=== PATIENT | male | born 1960 | race Caucasian/White ===

== ENCOUNTER → 2017-02-16 | Outpatient (CLI) | payer OTHER ==
--- NOTE | 2017-02-16 14:56 | XR ---
Left hip HISTORY: Trauma and pain 2 views of the left hip correlated to left femur same date Mild remodeling present at the hip joint, there is joint space loss. Alignment and bone mineralizatio n are maintained. No fracture or dislocation. IMPRESSION: Mild osteoarthritic change is suspected, correlate to exclude femoral acetabular impingem ent.
--- NOTE | 2017-02-16 14:58 | XR ---
EXAMINATION TYPE: XR femur LT DATE OF EXAM: 02/16/2017 CLINICAL HISTORY: Left hip pain after fall TECHNIQUE: Two views of the left femur are obtained. COMPARISON: None FINDINGS: There is no acute fracture or dislocation seen in the left femur. The left hip and knee j oints appear within normal limits. The overlying soft tissue appears unremarkable. Mild degenerative changes are seen of the femoral acetabular joints demonstrated as sourcil marginal endplate and ceph alad joint space narrowing. Minimal medial compartment joint space narrowing is also seen of the femo ral tibial joint with tibial sclerosis. Fabella is incidentally noted. Slight irregularity of the fib rehana may relate to prior injury as it is only seen on the lateral view. IMPRESSION: 1. There is no acute fracture or dislocation in the left femur. 2. Mild arthropathy of the femoral acetabular joint and femorotibial joints.
== END ==
LOC: RADXRMAIN 14:31
PROVIDERS: ATTEND Emergency Medicine
DX: S73.102A Unspecified sprain of left hip, initial encounter (principal)
CPT/HCPCS: 73502

== ENCOUNTER → 2019-05-16 | Outpatient (CLI) | payer OTHER ==
--- NOTE | 2019-05-16 11:51 | CT ---
EXAMINATION TYPE: CT cervical spine wo con DATE OF EXAM: 05/16/2019 COMPARISON: HISTORY: Fall, neck pain CT DLP: 439.4 mGycm CONTRAST: No contrast CT of the cervical spine is performed in the axial plane at 2 mm thick sections. Reconstructed image s in the coronal, and sagittal plane are reviewed on the computer. No acute fractures are evident. Vertebral body alignment is normal. Disc heights are preserved. There appears to be a moderately large disc herniation at C5-6 and the r ight paracentral region. This is broad-based but without spinal canal stenosis. Some cord contact may be present. Consider follow-up MRI for closer evaluation. This is not clearly evident on the compari son of 2015. Vertebral body heights are preserved. No spinal canal stenosis is evident Uncovertebral joint hypertrophy is present C4-C5 on the left with moderate foraminal narrowing. IMPRESSIONS: 1. No obvious acute osseous changes. 2. Chronic moderate narrowing left C4-5 foramen due to uncovertebral joint hypertrophy. 3. Disc herniation C5-C6 right paracentral with at least moderate thecal sac compression. Consider fo llow-up MRI for additional evaluation. Some cord contact should be considered.
== END | disposition home or self-care (01) ==
LOC: RADCTMAIN 11:10
PROVIDERS: ATTEND Emergency Medicine
DX: M48.02 Spinal stenosis, cervical region (principal); M50.222 Other cervical disc displacement at C5-C6 level
CPT/HCPCS: 72125

== ENCOUNTER → 2019-05-25 | Outpatient (CLI) | payer OTHER ==
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
== END | disposition home or self-care (01) ==
LOC: RADMRIMAIN 11:38
PROVIDERS: ATTEND Emergency Medicine
DX: M48.02 Spinal stenosis, cervical region (principal); M50.222 Other cervical disc displacement at C5-C6 level; M47.812 Spondylosis without myelopathy or radiculopathy, cervical region; M46.92 Unspecified inflammatory spondylopathy, cervical region; S13.4XXA Sprain of ligaments of cervical spine, initial encounter
CPT/HCPCS: 72141

== ENCOUNTER 2022-09-10 16:23 | Emergency (ER) | payer OTHER, BC ==
[2022-09-10 16:42] VITALS: RESP 18
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
[2022-09-10 18:26] LABS: Basophils % (A) 1 %; Eosinophils # (A) 0.1 k/uL (0-0.7); Eosinophils % (A) 1 %; HCT 50.5 % (39.0-53.0); Lymphocytes # (A) 1.5 k/uL (1.0-4.8); Lymphocytes % (A) 20 %; MCH 30.1 pg (25.0-35.0); MCHC 33.6 g/dL (31.0-37.0); MCV 89.6 fL (80.0-100.0); Mean Platelet Volume 7.3; Monocytes # (A) 0.4 k/uL (0-1.0); Monocytes % (A) 6 %; Neutrophils # (A) 5.3 k/uL (1.3-7.7); Neutrophils % (A) 70 %; Platelet Count 274 k/uL (150-450); RBC 5.64 m/uL (4.30-5.90); RDW 12.8 % (11.5-15.5); WBC 7.5 k/uL (3.8-10.6)
[2022-09-10 18:37] LABS: ALT 45 U/L (4-49); AST 33 U/L (17-59); African American GFR (CKD) >90 (>60 ml/min/1.73 sqM); Albumin 5.1 g/dL (3.5-5.0); Alkaline Phosphatase 57 U/L (38-126); Anion Gap 10 mmol/L; Blood Urea Nitrogen 20 mg/dL (9-20); Calcium 10.2 mg/dL (8.4-10.2); Carbon Dioxide 31 mmol/L (22-30); Chloride 101 mmol/L (98-107); Glucose 100 mg/dL (74-99); Non-African American GFR(CKD) 85 (>60 ml/min/1.73 sqM); Potassium 4.7 mmol/L (3.5-5.1); Sodium 142 mmol/L (137-145); Total Protein 8.8 g/dL (6.3-8.2)
[2022-09-10 20:20] VITALS: BP 126/81; PULSE 101; TEMP 98.7
== END 2022-09-10 20:22 | disposition home or self-care (01) ==
LOC: EC 16:23
DX: S29.9XXA Unspecified injury of thorax, initial encounter (principal); E11.9 Type 2 diabetes mellitus without complications; K21.9 Gastro-esophageal reflux disease without esophagitis; Z79.84 Long term (current) use of oral hypoglycemic drugs; Z79.82 Long term (current) use of aspirin; Z79.899 Other long term (current) drug therapy; V89.2XXA Person injured in unspecified motor-vehicle accident, traffic, initial encounter; Y92.410 Unspecified street and highway as the place of occurrence of the external cause
CPT/HCPCS: 36415; 71046; 80053; 84484; 85025; 93005; 99284